=== PATIENT | male | born 1955 | race Caucasian/White ===

== ENCOUNTER → 2017-08-30 09:02 | Outpatient (CLI) | payer BC ==
[2013-12-28 13:55] VITALS: BMI 29.3
[~2017-08-30 09:02] MED LIST: BAYER ASPIRIN325 MG PO; BAYER CHEWABLE81 MG PO; COZAAR100 MG PO; CYCLOBENZAPRINE10 MG PO; EFFEXOR37.5 MG PO; LOW DOSE ASPIRI81 M1 PO; METOPROLOL TART50 MG PO; PLAVIX75 MG PO; PRAVACHOL40 MG PO; RYTHMOL SR225 MG PO; TOPROL XL100 MG PO
== END | disposition home or self-care (01) ==
LOC: D.RAD 09:02
DX: R13.10 Dysphagia, unspecified (principal)

== ENCOUNTER 2017-09-14 14:58 | Observation (INO) | payer BC ==
[~2017-09-14] VITALS: Ht 180.3 cm; Wt 90.5 kg
[~2017-09-14 14:58] MED LIST changes: -LOW DOSE ASPIRI81 M1 PO; -TOPROL XL100 MG PO
[2017-09-14] MEDS ORDERED: LOW DOSE ASPIRI81 M1 PO (15:05)
[2017-09-14] MEDS ORDERED: COZAAR100 MG PO (15:06)
[2017-09-14] MEDS ORDERED: TOPROL XL100 MG PO (15:07)
[2017-09-14 15:56] LABS: BASOPHILS 0.4 % (0-2); EOSINOPHILS 0.9 % (0-7); HEMATOCRIT 42.6 % (42.0-54.0); HEMOGLOBIN 14.9 g/dL (13.5-17.5); IMMATURE GRANULOCYTES 0.2 % (0-5); LYMPHOCYTES 32.5 % (15-50); MCH 32.6 pg (26.0-34.0); MCV 93.2 fL (80.0-100.0); MEAN PLATELET VOLUME 10.2 fL (7.4-10.4); MONOCYTES 11.3 % (2-11); NEUTROPHILS 54.7 % (40-80); RBC 4.57 10x6/uL (4.20-6.10); RDW 12.8 % (11.5-14.5); WBC 5.3 10x3/uL (4.8-10.8)
[2017-09-14 16:28] LABS: ALBUMIN 3.7 g/dL (3.4-5.0); ANION GAP 7.6 mmol/L (8-16); BILIRUBIN - TOTAL 0.42 mg/dL (0.2-1.3); CALCIUM 8.9 mg/dL (8.5-10.1); CARBON DIOXIDE 29.3 mmol/L (21.0-32.0); CREATININE - SERUM 1.5 mg/dL (0.6-1.3); POTASSIUM - SERUM 4.9 mmol/L (3.5-5.1); PROTEIN - SERUM 8.4 g/dL (6.4-8.2)
[2017-09-14 16:34] LABS: PLATELET COUNT 148 10x3/uL (130-400)
[2017-09-14 16:35] LABS: APPEARANCE CLEAR (CLEAR); BILIRUBIN NEGATIVE (NEGATIVE); COLOR YELLOW (YELLOW); GLUCOSE NEGATIVE (NEGATIVE); KETONE NEGATIVE (NEGATIVE); NITRITE NEGATIVE (NEGATIVE); PROTEIN NEGATIVE (NEGATIVE); UROBILINOGEN NORMAL (NORMAL)
[2017-09-14 16:47] LABS: APTT 31.3 SECONDS (22.8-39.4); INR 1.13 (0.85-1.17); PROTIME 14.1 SECONDS (11.6-15.0)
[2017-09-14 17:59] VITALS: BP 134/76
[2017-09-14 18:39] LABS: ERYTHROCYTE SEDIMENTATION RATE 18 mm/hr (0-20)
[2017-09-14 19:10] VITALS: BP 158/86
[2017-09-14 21:38] VITALS: BP 157/70; BMI 27.8
[2017-09-14 23:24] VITALS: BP 126/72
[2017-09-15 03:50] VITALS: BP 132/76
[2017-09-15 06:48] VITALS: BP 144/78
[2017-09-15 11:23] VITALS: Ht 180.3 cm; Wt 90.5 kg
[2017-09-15 13:36] LABS: ERYTHROCYTE SEDIMENTATION RATE 11 mm/hr (0-20)
== END 2017-09-15 12:49 | disposition home or self-care (01) ==
LOC: D.ER 14:58 → D.MS 19:58 → OBSVTIME 19:58 → D.MS 09-15 12:49
PROVIDERS: Emergency Medicine; Family Medicine
DX: H53.8 Other visual disturbances (principal); R51 Headache; Z95.0 Presence of cardiac pacemaker; Z95.5 Presence of coronary angioplasty implant and graft; I25.10 Atherosclerotic heart disease of native coronary artery without angina pectoris; F41.9 Anxiety disorder, unspecified; K21.9 Gastro-esophageal reflux disease without esophagitis; I65.23 Occlusion and stenosis of bilateral carotid arteries

== ENCOUNTER 2019-02-20 11:19 | Outpatient (CLI) | payer BC ==
[~2019-02-20] VITALS: Ht 180.3 cm; Wt 90.9 kg
--- NOTE | ~2019-02-20 | HEMODYNAMI ---
PATIENT:CARL CABRERA MEDICAL RECORD: [id number] : 59 LOCATION:[facility] ADMISSION DATE: 02/20/19 Generatedon:02/20/201913:35 Patient name: CARL CABRERA Patient #: [id number] SSN: DO B: 1955 Date of study: 02/20/2019 Page: Of Hemodynamic Procedure Report Patient Data Patient Demographics First Name: CARL Gender: Male Last Name: RICK : 1955 Patient #: [id number] Age: 64 year(s) Race: Unknown Additional ID: [id number] Contact details [address]: [address] [place] [address] [place] State: [place] City: [place] Zip code: [address] Admission Admission Data Admission Date: 02/20/2019 Admission Time: 11:19 Arrival Date: 02/20/2019 Arrival Time: 0:00 Admit Source: Other Height (in.): 62 BSA: 1.95 (m2) Height (cm.): 157.48 BMI: 38.41 (kg/m2) Weight (lbs.): 210 Weight (kg.): 95.25 Lab Results Lab Result Date: 02/20/2019 Lab Result Time: 0:00 Biochemistry Name Units Result Min Max BUN mg/dl 15 --(--*-)-- 7 18 Creatinine mg/dl 1 --(--*-)-- 0.6 1.3 CBC Name Units Result Min Max Hemoglobin g/dl 15.1 --(-*--)-- 13.5 17.5 Procedure Procedure Types Cath Procedure Diagnostic Procedure PPM/ICD Permanent Pacer Generator Exg. Generator Removal Procedure Description Procedure Date Procedure Date: 02/20/2019 Procedure Start Time: 13:28 Procedure End Time: 13:30 Procedure Staff Name Function Audelia Wade RT Scrub Eliseo Roldan MD Assisting physician Bela Leon RT Monitor Axel Lee RN Nurse Carl Bentley MD Performing Physician Procedure Data Cath Procedure Fluoroscopy Diagnostic fluoroscopy Total fluoroscopy Time: 0 time: 0 min min Estimated blood loss: 5 ml Procedure Complications No complications Procedure Medications Medication Administration Route Dosage 0.9% NaCl I.V. 100 ml/hr Lidocaine 1% added to field 20 Ancef (1Gm/50ml NS) I.V.P.B 1 g Ancef Irrigation Topical 1 g (1gm/500ml NS) Hemodynamics Rest BSA: 1.95 (m2) HGB: 15.1 (g/dl) O2 Consumption: Estimated: 265.2 (ml/min) O2 Con sumption indexed: Estimated:136 (ml/min/m) Pre Cath Intra NCS Post Cath Vital Signs Time Heart Resp SPO2 etCO2 NIBP (mmHg) Rhythm Pain Sedation Rate (ipm) (%) (mmHg) Status Level (bpm) 12:58:22 89 28 99 0 148/93(122) Paced 0 (11) 10(A) , No pain 13:02:36 74 18 98 0 146/79(109) Paced 0 (11) 10(A) , No pain 13:06:48 63 14 100 0 137/80(115) Paced 0 (11) 10(A) , No pain 13:10:54 89 20 100 0 146/91(116) Paced 0 (11) 10(A) , No pain 13:15:03 71 16 99 0 144/87(108) Paced 0 (11) 10(A) , No pain 13:19:11 69 14 99 0 135/89(113) Paced 0 (11) 10(A) , No pain 13:23:17 65 11 98 0 134/88(114) Paced 0 (11) 10(A) , No pain 13:27:23 64 14 99 0 146/83(119) Paced 0 (11) 10(A) , No pain Medications Time Medication Route Dose Verified Delivered Reason Notes Effectiv eness by by 12:57:40 0.9% NaCl I.V. 100 Axel Axel Per ml/hr Jesus Lee physician RN RN 12:58:42 Lidocaine added 20ml Axel Axel for local 1% to vial Lorigan Lorigan anesthetic field ( X2) RN RN 12:59:10 Ancef I.V.P.B 1 g Axel Axel Per (1Gm/50ml Jesus Lee physician NS) RN RN 12:59:25 Ancef Topical 1 g Axel Axel used for Irrigation Lorigan Lorigan procedure (1gm/500ml RN RN NS) Procedure Log Time Note 12:33:43 Admit Source: Other 12:33:46 Arrival Date: 02/20/2019 12:00:00 AM 12:33:54 Patient Height : 62 inches 12:34:00 Patient Weight : 210 lbs 12:35:56 Lab Result : Hemoglobin 15.1 g/dl 12:35:56 Lab Result : Creatinine 1 mg/dl 12:35:56 Lab Result : BUN 15 mg/dl 12:37:10 Procedure Status Elective Heart Cath (OP). 12:37:13 Axel Lee RN sent for patient. Start room use. 12:37:14 Time tracking: Regular hours (M-F 7:00 - 5:00) 12:37:18 Plan of Care:Hemodynamics will remain stable., Cardiac rhythm will remain stable., Comfort level will be maintained., Respiratory function will remain adequate., Patient/ family verbilizes understanding of procedure., Procedure tolerated without complication., Recovers from procedure without complications.. 12:38:51 H&P Date Dictated: 02/17/2019 Within 30 days and on chart., H&P Addendum completed by physician on day of procedure. (MUST COMPLETE FOR ALL OUTPATIENTS). 12:38:56 Pre-procedure instructions explained to patient. 12:39:25 2) 60-89 Mildly reduced kidney function, and other findings (as for stage 1) point to kidney disease. 12:40:07 Sedation plan: None Medication:Lidocaine 12:40:24 Procedure started. 12:40:33 Physician arrived 12:40:34 --------ALL STOP TIME OUT------ 12:40:35 Final Timeout: patient, procedure, and site verified with staff and physician. All members of the team are in agreement. 12:40:44 Left chest site verified by team. 12:40:50 Fire Safety Assessment: A--An alcohol-based skin anteseptic being used preoperatively., C--Open oxygen or nitrous oxide is being used., D--An ESU, laser, or fiber-optic light is being used. 12:40:55 Full Disclosure recording started 12:40:[address] Generator [id number] opened to sterile field. 12:44:00 Use device set LEWIS PPM 12:44:07 Medtronic patient portal representative Marv Cabrera present for procedure. 12:57:19 Vital chart was started 12:57:40 0.9% NaCl 100 ml/hr I.V. was administered by Axel Lee RN; Per physician; Verbal order read back and verified. 12:58:42 Lidocaine 1% 20ml vial ( X2) added to field was administered by Axel Lee RN; for local anesthetic; Verbal order read back and verified. 12:59:10 Ancef (1Gm/50ml NS) 1 g I.V.P.B was administered by Axel Lee RN; Per physician; Verbal order read back and verified. 12:59:25 Ancef Irrigation (1gm/500ml NS) 1 g Topical was administered by Axel Lee RN; used for procedure; Verbal order read back and verified. 13:05:56 2-0 Ticron Multipack ([id number]) opened to sterile field. 13:05:58 Cautery Tip Manufacturing Systems Engineer opened to sterile field. 13:06:01 Mepilex Dressing ([id number]) opened to sterile field. 13:06:06 5-0 Monocryl PS2 [id number] opened to sterile field. 13:06:08 3-0 Vicryl Single Pack [id number] opened to sterile field. 13:09:01 Pre sharps counted by scrub and verified by RN: Sutures: 7; Sponges: 5; Stick needles: 0; Skin needles: 2; Blade: 1; Cautery: 1 13:09:05 Grounding pad site Left thigh. 13:09:15 Grounding pad site free from injury. 13:09:21 Lidocaine 1% was administered to left subclavicular area by Eliseo Roldan MD . 13:10:43 Incision made to left subclavicular area. 13:12:33 Generator pocket made/opened. 13:15:06 PPM Dual was removed.. 13:15:11 PPM Dual was removed.. 13:15:18 PPM Dual was inserted subcutaneously to left chest. 13:15:36 Device pocket was irrigated with Ancef. 13:15:55 Subcutaneous closure was completed with 3-0 silk. 13:16:04 Skin closure was completed with 5-0 monocryl. 13:16:16 Generator was sutured in place with 2-0 silk. 13:25:01 Is patient on blood thinner?No 13:25:10 Patient diabetic? No. 13:25:21 Snore? Yes 13:25:23 Sleep apnea? No 13:25:29 Dentures? No ? 13:27:48 Procedure ended.(Physican Out) 13:29:14 Fluoroscopy time 00.00 minutes. 13:29:19 Sharps counted by scrub and verified by R.N. 13:29:24 Insertion/operative site no bleeding no hematoma. 13:29:34 Post procedure rhythm: paced 13:29:37 Estimated blood loss: 5 ml 13:29:54 Post procedure instruction explained to patient.Patient verbalizes understanding. 13:30:02 Procedure type changed to Cath procedure, Diagnostic procedure, PPM/ICD, Permanent Pacer Generator Exg., Generator Removal 13:30:05 Procedure and supply charges have been captured, reviewed, submitted and are correct. 13:30:17 Procedure Complication : No complications 13:30:20 Vital chart was stopped 13:30:24 Operative report dictated upon procedure completion. 13:30:26 See physician's report for complete and final results. 13:30:27 Report given to Pre/Post Procedure Room. 13:30:30 Patient transfered to Pre/Post Procedure Room with Stretcher. 13:30:32 Full Disclosure recording stopped 13:30:32 Procedure ended. 13:30:35 End room use (Document Last) 13:31:54 Parameters-- Generator: Mode: DDDR. Lower Rate: 60bpm. Upper Rate: 130bpm. 13:33:03 Parameters--Ventricular P/R Wave: namV. Current: .4mA; Threshold: 1.0V; Impedence: 437OHMS. 13:33:22 Parameters--Atrial P/R Wave: 4.8mV. Current: .4mA; Threshold: .75V; Impedence: 418OHMS. Device Usage Item Name Manufacture Quantity Catalog Hospital Part Current Minima l Lot# / Number Charge Number Stock Stock Serial# Code Medtronic Medtronic 1 [id number] 5 NERY XT [id number] Generator EX04 W1DR01 - 2-0 Ticron Ethicon 6 [id number] 5 Multipack ([id number]) Cautery Tip Microtek 1 [id number] 903551 083432 976195 5 [employer] Mepilex Cardinal 1 223601 949900 474425 [id number] 5 Dressing Health (356862) 5-0 Monocryl Ethicon 1 [id number] 088694 146217 887020 5 PS2 Y495G 3-0 Vicryl Ethicon 1 [id number] 338493 314307 681622 5 Single Pack [id number] Signature Audit [place] Stage Time Signature Unsigned Intra-Procedure 02/20/2019 Bela Leon 1:34:38 PM RT(R) Intra-Procedure 02/20/2019 Axel 1:35:03 PM Jesus ORTIZ Intra-Procedure 02/20/2019 Carl Welsh 1:35:[address] [facility] [address] [place] [address]
--- NOTE | ~2019-02-20 | OP ---
PATIENT NAME: NYA CABRERA MEDICAL RECORD: [id number] :59 LOCATION:D.CAT ADMISSION DATE: SURGEON: TIM SAUCEDO MD DATE OF OPERATION: 02/20/2019 PREOPERATIVE DIAGNOSES: 1. End-of-life pacemaker generator. 2. Pacemaker in situ. 3. Coronary artery disease. 4. Hypertension. POSTOPERATIVE DIAGNOSES: 1. End-of-life pacemaker generator. 2. Pacemaker in situ. 3. Coronary artery disease. 4. Hypertension. PROCEDURE: Left subclavian vein dual lead pacemaker generator exchange. SURGEON: Tim Saucedo MD REPORT OF PROCEDURE: The patient's left chest was prepped and draped in sterile fashion. A 20 mL of 1% lidocaine with epinephrine was infused into the surrounding tissues. A skin incision was made on the left superior lateral chest and a subcutaneous pouch was encountered with the pacemaker in place. The pacemaker was freed up and eviscerated through the wound. We then disconnected the 2 leads and reconnected into a new pacemaker generator. This appeared to be functioning appropriately. The new generator was placed back into the subcutaneous pouch and sutured down with a 2-0 TiCron. We irrigated out the wound with antibiotic solution. The subcutaneous tissues were reapproximated with interrupted 3-0 Vicryl and the skin was closed with running subcutaneous 5-0 Monocryl. COMPLICATIONS: None. CONDITION: Stable. ANESTHESIA: Local. BLOOD LOSS: Minimal. TRANSINT:[id number] Voice Confirmation ID: [id number] DOCUMENT ID: [id number] TIM SAUCEDO MD CC: [id number] DICTATION DATE: 02/20/19 1326 ADMINISTRATIVE PROJECT COORDINATOR: 02/20/19 1537 DEP CLI 02/20/19 [id number] [place] [address]
[~2019-02-20 11:19] MED LIST changes: +LOW DOSE ASPIRI81 M1 PO; +TOPROL XL100 MG PO
[2019-02-20] MEDS ORDERED: NORVASC10 MG PO (11:52)
[2019-02-20 12:02] VITALS: BP 123/78; Ht 180.3 cm; Wt 90.9 kg
[2019-02-20 12:12] LABS: HEMATOCRIT 43.8 % (42.0-54.0); HEMOGLOBIN 15.1 g/dL (13.5-17.5); MCH 31.5 pg (26.0-34.0); MCHC 34.5 g/dL (31.0-37.0); MCV 91.4 fL (80.0-100.0); MEAN PLATELET VOLUME 10.3 fL (7.4-10.4); RBC 4.79 10x6/uL (4.20-6.10); RDW 12.5 % (11.5-14.5); WBC 6.7 10x3/uL (4.8-10.8)
[2019-02-20 12:22] LABS: CALC OSMOLALITY 271 mosm/kg (275-300); CALCIUM 8.9 mg/dL (8.5-10.1); CARBON DIOXIDE 25.5 mmol/L (21.0-32.0); CHLORIDE - SERUM 103 mmol/L (98-107); GLUCOSE 115 mg/dL (74-106); POTASSIUM - SERUM 4.8 mmol/L (3.5-5.1); SODIUM 135 mmol/L (136-145); UREA NITROGEN 15 mg/dL (7-18); eGFR NON AFRICAN AMERICAN 80 mL/min (90-120)
[2019-02-20 12:30] LABS: APTT 27.1 SECONDS (22.8-39.4); PROTIME 12.7 SECONDS (11.6-15.0)
[2019-02-20] MEDS ORDERED: HYDROCODON-ACE1 EA10 PO (13:29)
--- NOTE | 2019-02-20 13:40 | NUR ---
PATIENT ARRIVED TO ROOM 3, PLACED ON CM. VSS ON ROOM AIR. DRESSING IN PLACE ON LEFT CHEST.
--- NOTE | 2019-02-20 13:55 | NUR ---
PATIENT AWAKE, SITTING UP IN BED. DRINKING SODA, NO N/V. VSS ON ROOM AIR. DRESSING ON LEFT UPPER CHEST IS CDI.
--- NOTE | 2019-02-20 14:25 | NUR ---
PATIENT AWAKE, VSS ON ROOM AIR. LEFT UPPER CHEST DRESSING IS CDI, NO S/S OF BLEEDING. NO C/O PAIN, NUMBNESS, OR TINGLING.
--- NOTE | 2019-02-20 14:45 | NUR ---
IV REMOVED. WRITTEN AND VERBAL DISCHARGE EDUCATION GIVEN TO PATIENT AND SPOUSE, BOTH VOICE UNDERSTANDING. VSS ON ROOM AIR. LEFT UPPER CHEST DRESSING IS CDI, NO S/S OF BLEEDING.
--- NOTE | 2019-02-20 15:00 | NUR ---
PATIENT VOIDED WITHOUT DIFFICULTY. PATIENT TRANSPORTED VIA WHEELCHAIR TO CAR WITH SPOUSE DRIVING, ALL BELONGINGS WITH PATIENT.
== END 2019-02-20 15:00 ==
LOC: D.CATH 11:19
PROVIDERS: ATTEND Internal Medicine Interventional Cardiology
DX: T82.111A Breakdown (mechanical) of cardiac pulse generator (battery), initial encounter (principal); Z95.0 Presence of cardiac pacemaker; I25.10 Atherosclerotic heart disease of native coronary artery without angina pectoris; I10 Essential (primary) hypertension; E78.5 Hyperlipidemia, unspecified; I48.91 Unspecified atrial fibrillation

== ENCOUNTER 2019-07-05 16:25 | Emergency (ER) | payer BC ==
[~2019-07-05] VITALS: Ht 180.3 cm; Wt 97.7 kg
[~2019-07-05 16:25] MED LIST changes: +HYDROCODON-ACE1 EA10 PO; +NORVASC10 MG PO
[2019-07-05 16:30] VITALS: Ht 180.3 cm; Wt 97.7 kg
[2019-07-05 17:20] LABS: BASOPHILS 0.2 % (0-2); EOSINOPHILS 0.6 % (0-7); HEMATOCRIT 44.3 % (42.0-54.0); HEMOGLOBIN 14.9 g/dL (13.5-17.5); IMMATURE GRANULOCYTES 0.3 % (0-5); LYMPHOCYTES 33.9 % (15-50); MCH 31.6 pg (26.0-34.0); MCHC 33.6 g/dL (31.0-37.0); MCV 93.9 fL (80.0-100.0); MEAN PLATELET VOLUME 10.2 fL (7.4-10.4); MONOCYTES 11.6 % (2-11); NEUTROPHILS 53.4 % (40-80); PLATELET COUNT 179 10x3/uL (130-400); RBC 4.72 10x6/uL (4.20-6.10); RDW 12.9 % (11.5-14.5); WBC 6.2 10x3/uL (4.8-10.8)
[2019-07-05 17:29] LABS: APTT 25.8 SECONDS (22.8-39.4); INR 0.95 (0.85-1.17); PROTIME 12.7 SECONDS (11.6-15.0)
[2019-07-05 17:34] LABS: CALC OSMOLALITY 266 mosm/kg (275-300); CALCIUM 8.9 mg/dL (8.5-10.1); CARBON DIOXIDE 27.3 mmol/L (21.0-32.0); CHLORIDE - SERUM 97 mmol/L (98-107); CREATININE - SERUM 1.2 mg/dL (0.6-1.3); GLUCOSE 103 mg/dL (74-106); POTASSIUM - SERUM 4.1 mmol/L (3.5-5.1); SODIUM 134 mmol/L (136-145); UREA NITROGEN 11 mg/dL (7-18); eGFR NON AFRICAN AMERICAN 65 mL/min (90-120)
[2019-07-05 17:48] LABS: ALBUMIN 3.9 g/dL (3.4-5.0); ALKALINE PHOSPHATASE 64 U/L (30-120); ALT (SGPT) 49 U/L (10-68); BILIRUBIN - TOTAL 0.49 mg/dL (0.2-1.3); CKMB 0.7 U/L (0.0-3.6); CREATINE KINASE 68 UL (21-232); MAGNESIUM - SERUM 2.2 mg/dL (1.8-2.4); PROTEIN - SERUM 8.6 g/dL (6.4-8.2); THYROID STIMULATING HORMONE 1.32 uIU/mL (0.36-3.74)
[2019-07-05 17:49] LABS: TROPONIN-I < 0.017 ng/mL (0.000-0.060)
[2019-07-05 20:04] VITALS: BP 133/68
== END 2019-07-05 20:04 | disposition other institution (70) ==
LOC: D.ER 16:25
PROVIDERS: Emergency Medicine
DX: I63.9 Cerebral infarction, unspecified (principal); Z95.0 Presence of cardiac pacemaker; I10 Essential (primary) hypertension; K21.9 Gastro-esophageal reflux disease without esophagitis; R20.0 Anesthesia of skin

== ENCOUNTER 2019-07-08 16:42 | Inpatient (IN) | payer BC ==
[2019-07-08] VITALS (10 sets, daily range): BP systolic 111–168; BP diastolic 53–769; BMI 28.6
[~2019-07-08] VITALS: Ht 180.3 cm; Wt 99.1 kg
--- NOTE | ~2019-07-08 | OP ---
PATIENT NAME: NYA CABERRA MEDICAL RECORD: [id number] :59 LOCATION:[facility] D.CV04 ADMISSION DATE:07/08/19 SURGEON: FAROOQ VILLALOBOS MD DATE OF OPERATION: 07/09/2019 SURGEON: Farooq Villalobos MD ANESTHESIA: General endotracheal, Dr. Wood. OPERATION PERFORMED: Right carotid endarterectomy with patch angioplasty. PREOPERATIVE DIAGNOSIS: Critical right internal carotid artery stenosis. POSTOPERATIVE DIAGNOSIS: Critical right internal carotid artery stenosis. INDICATION FOR OPERATION: Critical right internal carotid artery stenosis. FINDINGS AT OPERATION: There were no EEG changes with clamping or unclamping of the carotid artery. ESTIMATED BLOOD LOSS: Less than 50 cc. DESCRIPTION OF PROCEDURE: After informed consent, adequate preoperative medication evaluation, the patient was brought to the operating room, placed on the table in the supine position. After induction of general endotracheal anesthesia and application of appropriate monitoring devices, the right neck and chest were prepped and draped in a sterile field, utilizing Betadine scrub, alcohol, and Betadine solution. Betadine-impregnated drape was also used. An oblique incision was made in the skin crease. Dissection carried down the fascia. Hemostasis maintained with electrocautery. The facial vein was identified and divided. Utilizing sharp dissection, the common carotid, internal and external carotid arteries were dissected free from surrounding structures, protecting the neurological structures. The patient was given a calculated dose of heparin, after 3 minutes, clamps were applied. After 2 minutes, no EEG change. The arteriotomy was made and extended with Pereira scissors. Artery underwent endarterectomy sharply. Artery underwent extensive debridement and irrigation. Utilizing a CorMatrix vascular patch and running 6-0 Prolene suture, the arteriotomy was closed with a patch angioplasty technique. All maneuvers to remove trapped air were performed. The clamps were removed sequentially. There were no EEG changes. The patient was given a calculated dose of protamine to reverse the heparin. Hemostasis was achieved. A #7 Sudheer-Medrano drain was left in the depths of wound and brought through the base of the neck. Neck was again irrigated. Instrument count and sponge count were correct times 2. Neck was closed in layers utilizing 3-0 Vicryl on the platysma, 5-0 subcuticular Monocryl on the skin. Sterile dressings were applied. The patient tolerated the procedure well and was transferred to cardiovascular recovery in satisfactory condition. TRANSINT:[id number] Voice Confirmation ID: [id number] DOCUMENT ID: [id number] OPERATIVE REPORT [id number] NYA CABRERA EDWARD MD CC: [id number] DICTATION DATE: 07/09/19 155 ED TEACHER: 07/09/19 1833 ADM IN [facility] [address] [place] [address]
--- NOTE | 2019-07-08 01:00 | NUR ---
PT VSS. NO S/SX OF DISTRESS/DISCOMFORT NOTED. WILL CONT POC.
[2019-07-08 17:19] LABS: HEMATOCRIT 45.4 % (42.0-54.0); HEMOGLOBIN 15.2 g/dL (13.5-17.5); MCH 31.3 pg (26.0-34.0); MCHC 33.5 g/dL (31.0-37.0); MCV 93.6 fL (80.0-100.0); RBC 4.85 10x6/uL (4.20-6.10); RDW 12.7 % (11.5-14.5); WBC 5.5 10x3/uL (4.8-10.8)
[2019-07-08 17:32] LABS: INR 1.11 (0.85-1.17); PROTIME 14.2 SECONDS (11.6-15.0)
[2019-07-08 18:13] LABS: ALBUMIN 3.8 g/dL (3.4-5.0); ANION GAP 15.3 mmol/L (8-16); BILIRUBIN - TOTAL 0.48 mg/dL (0.2-1.3); CALCIUM 8.8 mg/dL (8.5-10.1); CARBON DIOXIDE 23.7 mmol/L (21.0-32.0); CREATININE - SERUM 1.1 mg/dL (0.6-1.3); PROTEIN - SERUM 8.4 g/dL (6.4-8.2)
--- NOTE | 2019-07-08 18:38 | NUR ---
PT ARRIVED TO ROOM VIA EMS, DR VILLALOBOS NOTIFIED, R HAND PIV INITIATED, PT DENIES ALL PAIN AND NEEDS, PT SPOKE WITH DR VILLALOBOS AND DR BYRD,CONSENTS SIGNED, WILL CONTINUE TO MONITOR
--- NOTE | 2019-07-08 19:00 | NUR ---
REPORT RECEVIED FROM THE OFF GOING RN. SEE ASSESSMENT IN THE PTS FLOW SHEET. VSS. PPM NOTED TO LEFT UPPER CHEST. PT DENIES PAIN AT THIS TIME. CALL LIGHT IN REACH. WILL CONT POC.
--- NOTE | 2019-07-08 21:00 | NUR ---
PT VSS. NO COMPLAINTS AT THIS TIME. CALL LIGHT IN REACH. [facility] ONT POC.
[2019-07-08 21:38] LABS: BILIRUBIN NEGATIVE (NEGATIVE); GLUCOSE NEGATIVE (NEGATIVE); KETONE SMALL mg/dL (NEGATIVE); NITRITE NEGATIVE (NEGATIVE); SPECIFIC GRAVITY 1.015 (1.005-1.020); UROBILINOGEN NORMAL (NORMAL)
--- NOTE | 2019-07-08 23:00 | NUR ---
REASSESSMENT COMPLETED. SEE FLOW SHEET. WILL CONT POC.
[2019-07-09] VITALS (46 sets, daily range): BP systolic 115–150; BP diastolic 54–90; Ht 180.3 cm; Wt 99.1 kg
--- NOTE | 2019-07-09 03:33 | NUR ---
PT CLIPPED, FULL CHD BATH GIVEN AND LINENS CHANGED. CONSENT FOR BLOOD SIGNED BY THE PT AND PLACED IN THE PTS CHART. CALL LIGHT IN REACH. WILL CONT POC.
--- NOTE | 2019-07-09 08:34 | NUR ---
0700 PT RECIEVED ALERT AND ORIENTED VSS DENIES PAIN, HEPARIN INFUSING PER ORDERS, DENIES ALL NEEDS 0800 HEPARIN DCD PER ORDERS.
--- NOTE | 2019-07-09 09:13 | NUR ---
HOLDING AM MEDS DUE TO NPO AFTER SPEAKING WITH DR MALHOTRA NURSE COURTNI
--- NOTE | 2019-07-09 09:58 | NUR ---
RHYTHMOL AND METOPROLOL GIVEN PER DR MALHOTRA NURSE DYAN
--- NOTE | 2019-07-09 10:57 | NUR ---
PREOP MEDS GIVEN, PT SPOKE WITH ON PHONE
--- NOTE | 2019-07-09 11:20 | NUR ---
1105 PT TAKEN TO OR WITH OR STAFF
--- NOTE | 2019-07-09 16:11 | NUR ---
PT RECIEVED BACK FROM OR ALERT AND ORIENTED VSS DENIES PAIN L IJ CVL DRESSING CDI, SEE IV FLOWSHEET, R CEA INCISION DRESSING CDI WITH ICE APPLIED, MADONNA DRAIN COMPRESSED WITH BLOODY DRAINAGE, R RADIAL A LINE ZEROED, GOOD WAVEFORM WRIST PROTECTOR IN PLACE, CRITICORE WARNER DRAINING YELLOW URINE, PT ABLE TO HAND HSE ADVISOR BILATERALLY, SLIGHTLY WEAKER IN LEFT ARM, FOOT/LEG MOVEMENT EQUAL, DR VILLALOBOS AWARE, FAMILY UPDATED BY DR VILLALOBOS, WILL CONTINUE TO MONITOR
--- NOTE | 2019-07-09 19:30 | NUR ---
PT AOX4, TONGUE MIDLINE, LEFT CERTIFIED MASTER SAFECRACKER WEAKER THAN RIGHT, LOWER EXTREMITY STRENGTH EQUAL. PUPILS EQUAL AND REACTIVE. LUNG SOUNDS CLEAR, SPO2 97, COUGH/DB WITH GOOD EFFORT. WARNER INTACT WITH YELLOW URINE. R NECK INCISION WITH DRSG CDI, NO SWELLING NOTED, MADONNA INTACT AND COMPRESSED. PT REPOSITIONED FOR COMFORT WITH PROMINENCES BRIDGED. CALL LIGTH AND BEDSIDE TABLE WITHIN PT REACH, CPOC.
--- NOTE | 2019-07-09 20:30 | NUR ---
FRESH WATER TO BEDSIDE, HS MEDS GIVEN WITH NO DIFFICULTY. PT REPOSITIONED FOR COMFORT WITH PROMINENCES BRIDGED. AOX4, NO NEURO CHANGES AT THIS TIME. R NECK WITH DRSG CDI, NO SWELLING NOTED, ICE PACK AT SITE. MADONNA INTACT AND COMPRESSED. DENIES NEEDS. CALL LIGHT AND BEDSIDE TABLE WITHIN PT REACH. CPOC.
--- NOTE | 2019-07-09 21:30 | NUR ---
PARTIAL LINEN CHANGE PROVIDED, PT REPOSITIONED FOR COMFORT. NO CHANGES NOTED AT THIS TIME. VSS, DENIES NEEDS. CALL LIGHT AND BEDSIDE TABLE WITHIN PT REACH.
--- NOTE | 2019-07-09 23:27 | NUR ---
REASSESSMENT COMPLETE, NO NEW CHANGES AT THIS TIME. R NECK WITH DRSG CDI, MADONNA INTACT AND COMPRESSED. AOX4, SPECIAL LIBRARIAN EQUAL, PUPILS REACTIVE AND EQUAL. PT REPOSITIONED FOR COMFORT. COUGH/DB/IS WITH GOOD EFFORT. CALL LIGHT AND BEDSIDE TABLE WITHIN PT REACH. CPOC.
[2019-07-10] VITALS (51 sets, daily range): BP systolic 108–157; BP diastolic 48–83
--- NOTE | 2019-07-10 00:26 | CN ---
PATIENT NAME:NYA CABRERA MEDICAL RECORD: [id number] : 59 LOCATION:[facility].CV04 ADMIT DATE: 07/08/19 ACCOUNT: [id number] CONSULTING PHYSICIAN: POOJA POZO MD REFERRING PHYSICIAN: FAROOQ VILLALOBOS MD DATE OF CONSULTATION: 07/09/2019 This is a consult from Dr. Villalobos for medical management. HISTORY OF PRESENT ILLNESS: This is a 64-year-old white male who called me on 07/05/2019 stating he had sudden loss of function in his left arm. It had gotten better. I suggested he went to the ER and he came to [facility] where he was found to have a stroke. At first, she was going to be admitted here under Dr. Pavon; however, found out later, he had a critical stenosis of the right carotid artery and [facility] apparently was on surgical diversion, so he was transferred to [facility] for further care. The patient states that he was seen by neurology and surgery there at [facility] and that they told him there that he needed to have a carotid surgery. The patient wanted to come back down here and he was transferred back down here on 07/08/2019 for his right carotid stenosis. Dr. Villalobos was the accepting physician here. The patient was taken to the operating room today and had a right carotid endarterectomy for the critical right internal carotid artery stenosis. I am consulted for medical management. PAST MEDICAL HISTORY: Coronary artery disease, hypertension, remote history of paroxysmal atrial fibrillation, hyperlipidemia, and degenerative disc disease in the cervical spine. PAST SURGICAL HISTORY: Coronary artery bypass graft, pacemaker placement, and now right carotid endarterectomy. DRUG ALLERGIES: None known. CURRENT MEDICATIONS: Include Cyclobenzaprine 10 mg p.o. b.i.d. p.r.n. neck spasm, propafenone SR 225 mg once a day, losartan 100 mg twice a day, metoprolol succinate 50 mg twice a day, amlodipine 10 mg once a day, and aspirin 81 mg once a day. HABITS: Former smoker, occasional alcohol, no illicit drug use. FAMILY HISTORY: Father is . He had coronary artery disease, hypertension, and diabetes. Mother is . She had hypertension and liver cancer. SOCIAL HISTORY: He is and lives with his . REVIEW OF SYSTEMS: GENERAL: No major weight changes. HEENT: No particular sinus or allergy problems. RESPIRATORY: No known diagnosis of COPD or asthma. CARDIAC: See above, history of coronary artery disease. He is followed in [facility]. GASTROINTESTINAL: No significant diarrhea, constipation, or heartburn. GENITOURINARY: No significant problems there. MUSCULOSKELETAL: He has degenerative disc disease in the cervical spine area. NEUROLOGIC: No migraines. No seizures. CONSULT REPORT [id number] NYA CABRERA PSYCHIATRIC: Denies depression or melancholia. PHYSICAL EXAMINATION: GENERAL: The patient is awake, alert, does not appear to be in acute distress. VITAL SIGNS: Temperature 98.4, pulse 64, respirations 13, blood pressure 123/70, and O2 sat 97%. GENERAL: He is awake and alert. He is postoperative. He is in no acute distress. He is eating some ice cream. HEENT: Unremarkable. HEART: Regular rate and rhythm. LUNGS: Fairly clear. ABDOMEN: Soft, flat, nontender. EXTREMITIES: No edema. NEUROLOGIC: Cranial nerves are intact. He has a little fine motor skill deficit in the left hand. LABORATORY DATA: Yesterday here, CBC showed a white count of 5500. He was not anemic. His basic metabolic panel was fine. Liver enzymes are fine. INR 1.11. Urinalysis was normal. ASSESSMENT: 1. Hypertension. 2. Right carotid artery stenosis. 3. Acute stroke, most likely involving posterior communicating arteries. 4. History of coronary artery disease. PLAN: We will monitor his blood pressure. Other routine postop. Thank you for this consult. We will continue to follow while he is in the hospital. TRANSINT:[id number] Voice Confirmation ID: [id number] DOCUMENT ID: [id number] POOJA POZO MD at 0026 CC: [id number] DICTATION DATE: 07/09/191829 HOGSHEAD INSPECTOR: 07/09/191928 ADM IN [place] [address] [facility], [place] [address]
--- NOTE | 2019-07-10 03:43 | NUR ---
PT REPOSITIONED FOR COMFORT WITH PROMINENCES BRIDGED. PARTIAL LINEN CHANGE. COUGH/DB/IS WITH GOOD EFFORT, REACHING 2500 X10. DENIES NEEDS. CALL LIGHT AND BEDSIDE TABLE WITHIN PT REACH. CPOC.
--- NOTE | 2019-07-10 05:40 | NUR ---
PT REPOSITIONED FOR COMFORT. NO CHANGES AT THIS TIME. I/S COMPLETED REACHING 2500. DENIES NEEDS. CALL LIGHT AND BEDSIDE TABLE WITHIN PT REACH. CPOC.
--- NOTE | 2019-07-10 07:00 | NUR ---
RECEIVED BEDSIDE REPORT ON PATIENT AND ASSUMED CARE. PATIENT ALERT AND ORIENTED X 4. STATES LEFT SIDED WEAKNESS HAS RESOLOVED, EQUAL BLOW MOLD TECHNICIAN AND STRENGTH BILATERALLY NOTED, DOES STATE THAT HE HAS DIFFICULTY WITH FINE MOTOR SKILLS, LIKE WRITING HIS NAME, WITH HIS LEFT HAND. VSS. LEFT IJ CENTRAL LINE AND RIGHT ART LINE NOTED, CVP AND ART LEVELED AND ZEROED. PLASOMLYTE INFUSING AT 30 ML/HR, CLEVIPREX INFUSING AT 6 MG/HR (12 ML/HR), NTG INFUSING AT 50 MCG/MIN (15 ML/HR) AND ZINACEF AT 11.4 ML/HR. WARNER CATH IN PLACE WITH YELLOW CLEAR UOP NOTED. DRAIN TO RIGHT UPPER CHEST NOTED, DRESSING C/D/I, BULB COMPRESSED AND BLOODY DRAINAGE NOTED. SCDS AND MILAD HOSE IN PLACE. CM - PACED DUAL CHAMBER 100%, BBS - CLEAR AND EQUAL, RR - 12, NON LABORED WITH SPO2 96% ON 4 LPM VIA NC. IS - 2000. HEAD TO TOE ASSESSMENT COMPLETED.
--- NOTE | 2019-07-10 08:21 | NUR ---
PATIENT GIVEN BREAKFAST TRAY. VSS. NO NEEDS AT THIS TIME.
--- NOTE | 2019-07-10 08:50 | NUR ---
DYAN RN WITH DR. VILLALOBOS AT ROOM UPDATED AND ADVISED TO DC ART LINE AND CVP MONITORING, AND DC CLEVIPREX GTT AND NTG GTT. UP TO CHAIR WITH PT CONSULT.
--- NOTE | 2019-07-10 09:50 | NUR ---
ART LINE DISCONTINUED PER ORDER. DIRECT PRESSURE HELD FOR APPROXIMATELY 3 MINUTES, NO HEMATOMA OR BLEEDING NOTED. VSS. WARNER CATH DC'D PER ORDER.
--- NOTE | 2019-07-10 10:00 | NUR ---
DR. VILLALOBOS AT ROOM UPDATED AND EXAMINES PATIENT. VSS.
--- NOTE | 2019-07-10 10:15 | NUR ---
SPO2 - 99% ON 2 LPM O2 VIA NC, O2 REMOVED AND WILL MONITOR.
--- NOTE | 2019-07-10 10:32 | NUR ---
SPO2 - 94% ON RA, VSS.
--- NOTE | 2019-07-10 11:00 | NUR ---
REASSESSMENT COMPLETED. VSS. PATIENT RESTING QUIETLY, EASILY AROUSED. NO NEEDS AT THIS TIME.
--- NOTE | 2019-07-10 11:38 | NUR ---
PATIENTS AT ROOM UPDATED AND VISITING WITH PATIENT.
--- NOTE | 2019-07-10 12:26 | NUR ---
PATIENT GIVEN FULL LIQUID LUNCH TRAY. VSS.
--- NOTE | 2019-07-10 13:53 | NUR ---
DR. POZO AT ROOM UPDATED AND EXAMINES PAIBONNIE.
--- NOTE | 2019-07-10 15:00 | NUR ---
REASSESSMENT COMPLETED. VSS.
--- NOTE | 2019-07-10 16:04 | NUR ---
PATIENT WATCHING TV, VSS. NO NEEDS AT THIS TIME.
--- NOTE | 2019-07-10 16:37 | NUR ---
PATIENT UP TO BEDSIDE CHAIR FOR DINNER. DR. VILLALOBOS AT ROOM AND DISCONTINUED MADONNA DRAIN. VSS. NO NEEDS AT THIS TIME.
--- NOTE | 2019-07-10 18:21 | NUR ---
PATIENT SITTING UP IN CHAIR, VSS. NO COMPLAINTS OR NEEDS AT THIS TIME.
--- NOTE | 2019-07-10 19:00 | NUR ---
SHIFT ASSESSMENT COMPLETED. PT CARE ASSUMED. MONITORS ON AND WORKING, VITALS STABLE, CALL LIGHT WITHIN REACH, PT AWAKE AND ALERT, DENIES ANY COMPLAINT OF PAIN OR DISCOMFORT AT THIS TIME, SEE FLOW SHEET FOR FURTHER DETAILS.
--- NOTE | 2019-07-10 21:00 | NUR ---
PT SITTING UP IN CHAIR, PT AMBULATES WELL, NO SOB OR DISCOMFORT NOTED. CALL LIGHT WITHIN REACH, WILL CONTINUE TO OBSERVE.
--- NOTE | 2019-07-10 23:00 | NUR ---
PT LYING IN BED RESTING, MONITORS ON AND WORKING, VITALS STABLE, PT AWAKE AND ALERT, CALL LIGHT WITHIN REACH, SEE FLOW SHEET FOR FURTHER DETAILS. WILL CONTINUE TO OBSERVE.
[2019-07-11] VITALS (11 sets, daily range): BP systolic 119–144; BP diastolic 57–72
--- NOTE | 2019-07-11 01:00 | NUR ---
PT LYING IN BED RESTING, MONITORS ON AND WORKING, VITALS STABLE, CALL LIGHT WITHIN REACH, WILL CONTINUE TO OBSERVE.
--- NOTE | 2019-07-11 03:00 | NUR ---
PT UP TO BEDSIDE CHAIR, MONITORS ON AND WORKING, VITALS STABLE, CALL LIGHT WITHIN REACH, SEE FLOW SHEET FOR FURTHER DETAILS. WILL CONTINUE TO OBSERVE.
--- NOTE | 2019-07-11 05:00 | NUR ---
PT LYING IN BED RESTING, MONITORS ON AND WORKING, VITALS STABLE. CALL LIGHT WITHIN REACH, WILL CONTINUE TO OBSERVE.
--- NOTE | 2019-07-11 07:00 | NUR ---
RECEIVED BEDSIDE REPORT ON PATIENT AND ASSUMED CARE. PATIENT RESTING QUIETLY IN BED, EASILY AROUSED BY VOICE. VSS. ALERT AND ORIENTED X 4, MOVES ALL EXTREMITEIS EQUALLY, STATES FINE MOTOR SKILLS TO LEFT HAND IMPROVING. MILAD HOSE AND SCDS IN PLACE, SKIN INTACT. BBS - CLEAR AND EQUAL, RR - 18, SO2 - 96% ON RA. CM - PACED 100% DUAL CHAMBER RATE 78. LEFT IJ CVL IN PLACE, SALINE LOCKED. HEAD TO TOE ASSESSMENT COMPLETED.
--- NOTE | 2019-07-11 08:01 | NUR ---
PATIENT ASSISTED WITH SET UP OF BREAKFAST TRAY. VSS.
--- NOTE | 2019-07-11 08:01 | NUR ---
PATIENT ASSISTED UP TO BEDSIDE CHAIR FOR BREAKFAST. VSS.
[2019-07-11] MEDS ORDERED: PLAVIX75 MG PO (09:23)
--- NOTE | 2019-07-11 09:31 | NUR ---
CVL DISCONTINUED TO LEFT IJ PER ORDER, DIRECT PRESSURE HELD FOR 2 MINUTES, NO BLEEDING OR HEMATOMA, CLEANED WITH BETADINE AND COVERED WITH 2X2 AND TEGADERM DRESSING. VSS.
--- NOTE | 2019-07-11 10:12 | NUR ---
Nutrition Follow-up: POD 2 R carotid endarterectomy. Eating well. Denies N/V/C/D. C/o sore throat. Diet: Cardiac PO intake: 100% x 4 Wt: 218# (07/09); 205# (07/08) Last BM: 07/09 No new labs Meds noted: Protonix -Monitor wt. -RD following.
--- NOTE | 2019-07-11 10:18 | NUR ---
PATIENT GIVEN DISCHARGE INSTRUCTIONS VERBALIZES UNDERSTANDING. VSS. DISCHARGED TO HOME, AMBULATORY TO VEHICLE.
--- NOTE | 2019-07-11 21:47 | MORECARE ---
CASE MANAGEMENT DISCHARGE SUMMARY PATIENT: NYA CABRERA UNIT: [id number] ADM DATE: 07/08/19 AGE: 64 : 59 SEX: M [facility] AUTHOR: RUTHANN REYES PHYSICIAN: REFERRING PHYSICIAN: FAROOQ VILLALOBOS MD DATE OF SERVICE: 07/11/19 Discharge Plan Patient Name: [facility]A CAB[facility]ER[facility] [facility] 1955 Planned Disposition: Anticipated Discharge Date: Discharge Date: 07/11/2019 Expected LOS: Initial Reviewer: [email or web address] Initial Review Date: 07/08/2019 Generated: 07/11/19 10:46 pm DCPIA - Discharge Planning Initial Assessment Updated by [email or web address]: Priya James on 07/11/19 9:46 pm * Is the patient Alert and Oriented? Yes * How many steps to enter\exit or inside your home? * PCP NOHELIA * Pharmacy [facility] * Preadmission Environment Home with Family * ADLs Independent * Equipment None * List name and contact numbers for known caregivers / representatives who currently or will assist patient after discharge: STEPHANIE CABRERA - SPOUSE - [phone] * Verbal permission to speak to the caregivers and representatives has been obtained from the patient. Yes * Community resources currently utilized None * Additional services required to return to the preadmission environment? No * Can the patient safely return to the preadmission environment? Yes * Has this patient been hospitalized within the prior 30 days at any hospital? Yes Patient Name: NYA CABRERA Page [id number] at 2147 All edits/amendments must be made on the electronic document DICTATION DATE: 07/11/192145 WEDGER MACHINE: ANN 07/11/192145 RPT#: [id number] DC DATE:07/11/19 STATUS: DIS IN [address] [address] END OF REPORT
--- NOTE | 2019-07-11 21:54 | MORECARE ---
CASE MANAGEMENT DISCHARGE SUMMARY PATIENT: NYA CABRERA UNIT: [id number] ADM DATE: 07/08/19 AGE: 64 : 59 SEX: M [facility] AUTHOR: AMY,DOC PHYSICIAN: REFERRING PHYSICIAN: FAROOQ VILLALOBOS MD DATE OF SERVICE: 07/11/19 Discharge Plan Patient Name: NYA CABRERA Facility: [facility]:[place] : 1955 Planned Disposition: Anticipated Discharge Date: Discharge Date: 07/11/2019 Expected LOS: Initial Reviewer: [email or web address] Initial Review Date: 07/08/2019 Generated: 07/11/19 10:53 pm Comments DCP- Discharge Planning Updated by [email or web address]: Priya James on 07/11/19 8:[address] Patient Name: NYA CABRERA Admission Status: Elective Accout number: [id number] Admission Date: 07-08-2019 : 1955 Admission Diagnosis:OCCLUSION AND STENOSIS OF RIGHT CAROTID ARTERY Attending: FAROOQ VILLALOBOS Current LOS: 3 Anticipated DC Date: Planned Disposition: Primary Insurance: [employer] [facility] [place] Discharge Planning Comments:CM met with patient at bedside after explaining CM role and obtaining verbal consent. Patient lives at home with his where he is independent with his care and plans to return there upon discharge. Patient feels this would be a safe discharge. CM discussed availability / needs of home health and medical equipment. Patient denies any discharge needs at this time. Patient states he will have his family drive him home upon discharge. CM will continue to follow and assist as needed with discharge planning / needs. CM set patient up with outpatient therapy for OT for hand strengthening post cva. Patient has and appointment @ 1100 Sunday07/14/19 Boiler Engineer: Priya James DCPIA - Discharge Planning Initial Assessment Updated by [email or web address]: Priya James on 07/11/19 9:46 pm * Is the patient Alert and Oriented? Yes * How many steps to enter\exit or inside your home? * PCP NOHELIA * Pharmacy [facility] * Preadmission Environment Home with Family * ADLs Independent * Equipment None * List name and contact numbers for known caregivers / representatives who currently or will assist patient after discharge: STEPHANIE CABRERA - SPOUSE - [phone] * Verbal permission to speak to the caregivers and representatives has been obtained from the patient. Yes * Community resources currently utilized None * Additional services required to return to the preadmission environment? No * Can the patient safely return to the preadmission environment? Yes * Has this patient been hospitalized within the prior 30 days at any hospital? Yes Last DP export: 07/11/19 8:47 pm Patient Name: NYA CABRERA Page [id number] at 2154 All edits/amendments must be made on the electronic document DICTATION DATE: 07/11/192152 [facility]: ANN 07/11/192152 RPT#: [id number] DC DATE:07/11/19 STATUS: DIS IN [facility] [address] [place] [address] END OF REPORT
== END 2019-07-11 10:44 | disposition home or self-care (01) | DRG 39 ==
LOC: D.CVICU 16:42
PROVIDERS: ADMIT Internal Medicine Cardiovascular Disease; ATTEND Internal Medicine Cardiovascular Disease
PROC: 03UK0JZ Supplement Right Internal Carotid Artery with Synthetic Substitute, Open Approach (ICD-10-PCS; 2019-07-09)
PROC: 03CK0ZZ Extirpation of Matter from Right Internal Carotid Artery, Open Approach (ICD-10-PCS; principal; 2019-07-09 12:45)
DX: I63.231 Cerebral infarction due to unspecified occlusion or stenosis of right carotid arteries (principal); I25.10 Atherosclerotic heart disease of native coronary artery without angina pectoris; I10 Essential (primary) hypertension; I48.0 Paroxysmal atrial fibrillation; E78.5 Hyperlipidemia, unspecified